=== PATIENT | female | born 1975 | race Caucasian/White ===

== ENCOUNTER → 2019-08-29 11:00 | Outpatient (BNVA) | payer MEDICARE, SELFPAY | PROVIDERS: Visit Provider Nurse Practitioner | DX: I10 Essential (primary) hypertension (principal); E11.9 Type 2 diabetes mellitus without complications; N32.81 Overactive bladder; E03.8 Other specified hypothyroidism; J30.1 Allergic rhinitis due to pollen; K21.9 Gastro-esophageal reflux disease without esophagitis; L03.019 Cellulitis of unspecified finger; F31.9 Bipolar disorder, unspecified | CPT/HCPCS: 80053; 80061; 81000; 83036; 84443 ==

== ENCOUNTER 2019-10-28 01:15 | Emergency (ER) | payer MEDICARE, MEDICAID, SELFPAY ==
[2019-10-28] VITALS (9 sets, daily range): BP systolic 114–199; BP diastolic 74–119; PULSE 127–149; RESP 13–44; TEMP 36.1; O2SAT 75–100; BMI 36.5
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
[2019-10-28 02:33] LABS: Basophils # 0.1 10^3/uL (0.0-0.1); Basophils % 0.2 %; Eosinophils # 0.1 10^3/uL (0.0-0.8); Eosinophils % 0.2 %; Hematocrit 37.9 % (37.0-47.0); Hemoglobin 12.5 g/dL (11.5-15.3); Lymphocytes # 5.9 10^3/uL (0.8-4.8); Lymphocytes % 20.8 %; Mean Corpuscular Hemoglobin 28.3 pg (28.0-34.0); Mean Corpuscular Volume 85.7 fL (81-99); Mean Platelet Volume 11.4 fL (7.4-10.4); Monocytes # 1.1 10^3/uL (0.2-0.9); Neutrophils # 20.3 10^3/uL (1.8-7.7); Neutrophils % 72.5 %; Nucleated Red Blood Cells % 0.1 %; Platelet Count 279 10^3/cmm (130-400); Red Blood Count 4.42 10^6/uL (4.1-5.3); White Blood Count 28.1 10^3/uL (4.0-10.0)
[2019-10-28 02:34] LABS: Alanine Aminotransferase 105 U/L (0-33); Albumin Level 4.2 g/dL (3.5-5.2); Alkaline Phosphatase 144 IU/L (35-105); Anion Gap 19.4 (5-19); Aspartate Amino Transferase 148 U/L (0-32); Blood Urea Nitrogen 11 mg/dL (6-20); Calcium 9.9 mg/dL (8.5-10.5); Carbon Dioxide 18 mmol/L (22-29); Chloride 104 mmol/L (98-107); Globulin 2.7 g/dL (1.3-4.6); Glucose 350 mg/dL (65-115); Osmolality Calculated 296 mOsm/kg (285-295); Potassium 3.4 mmol/L (3.5-5.1); Sodium 138 mmol/L (136-145); Total Bilirubin 0.3 mg/dL (0.15-1.2); Total Protein 6.9 g/dL (6.6-8.7)
[2019-10-28] MEDS: fentaNYL 50 mcg/mL INJ 2mL 100 MCG IVP ×2 (03:58→04:12)
[2019-10-28] MEDS: ceFAZolin 2,000 MG in sodium chloride 0.9% (plus) 50 ML 100 MG IV (04:11)
[2019-10-28] MEDS: propofol 1,000 MG/100 ML INJ 25 MG (04:11)
[2019-10-28] MEDS: vecuronium 10 mg SDV 10.8862 MG IVP (04:15)
[2019-10-28] MEDS: sodium chloride 0.9% 1,000 ML 999 ML IV (04:16)
[2019-10-28] MEDS: succinylcholine 20 mg/mL SDV 10mL 200 MG IVP (04:18)
--- NOTE | 2019-10-28 04:19 | PC.NURSE ---
splinted L wrist with 8 inches of 3 in of ortho glass and wrapped with jas wrap. All SMCs intact prior and post procedure. R ankle splinted with 10 inches of 4 inch ortho glass and wrapped with 2 3inch jas wraps. All SMCs intact prior and post procedure.
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
--- NOTE | 2019-11-06 10:00 | PM.ACPR ---
Procedure/Consent Time out: Time Out Performed: Yes Acute Procedures Chest Tube^: Chest Tube 1: Chest tube location: Mid-Axillary Chest Size of tube: 24 Chest tube procedure: Yes betadine prep and sterile drapes applied Tube sutured to skin: Yes Sterile dressing applied: Yes Anesthesia: 1% Lidocaine Incision made with: #11 blade Post procedure: sutured to skin [place] of air heard: Yes Tube Drainage: blood Amount of initial drainage (ml): 100 Post procedure CXR?: Yes Patient tolerated procedure: Yes Epistaxis Control: Time out performed: Yes
== END 2019-10-28 02:55 | disposition short-term general hospital (02) ==
PROVIDERS: Emergency Provider Emergency Medicine
DX: S27.2XXA Traumatic hemopneumothorax, initial encounter (principal); S32.471A Displaced fracture of medial wall of right acetabulum, initial encounter for closed fracture; V89.2XXA Person injured in unspecified motor-vehicle accident, traffic, initial encounter; E11.9 Type 2 diabetes mellitus without complications; I10 Essential (primary) hypertension; Z86.19 Personal history of other infectious and parasitic diseases
CPT/HCPCS: 12345; 29125; 29515; 31500; 36430; 71045; 72170; 80053; 85025; 86900; 86920; 94002; 94799; 96365; 96375; 96376; 99283; 99291; J0330; J0690; J2704; J3010; J3490; J7030; P9016